=== PATIENT | female | born 1975 | race Caucasian/White ===

== ENCOUNTER 2017-12-16 11:29 | Emergency (ER) | payer MEDICAID ==
[~2017-12-16] VITALS: Ht 167.6 cm; Wt 63.5 kg
[2017-12-16] MEDS ORDERED: HYDROmorphone 1 mg/ml syringe IV ONE (11:55)
[2017-12-16] MEDS ORDERED: ondansetron/PF 4mg/2ml inj IV ONE ×2 (11:55→14:15)
[2017-12-16] MEDS ORDERED: normal saline 1000ML IV soln IVB ONE (11:55)
[2017-12-16 12:06] LABS: CLARITY,URINE Clear (Clear); COLOR,URINE Yellow (Yellow); GLUCOSE, URINE Negative (Neg); KETONES,URINE Negative (Neg); LEUKOCYTE ESTERASE ,URINE Trace (Neg); NITRITES, URINE Negative (Neg); OCCULT BLOOD,URINE Small (Neg); PROTEIN,URINE Negative (Neg); URINE HCG NEGATIVE (NEG)
[2017-12-16] MEDS ORDERED: HYDROmorphone inj. 0.5 MG/0.5 ML DISP.SYRIN ONE (12:06)
[2017-12-16 12:17] LABS: UA COLLECTION TYPE CLN CATCH MIDSTREAM
[2017-12-16 12:18] LABS: BACTERIA,URINE FEW /HPF (Neg); RBC,URINE 0-2 /HPF (0-2); WBC,URINE 0-4 /HPF (0-4)
[2017-12-16 12:19] LABS: BASOPHILS % (AUTO) 0.1 % (0-1); EOSINOPHILS % (AUTO) 0.4 % (0-6); HEMATOCRIT 34.5 % (35.0-45.0); HEMOGLOBIN 12.1 g/dl (12.0-16.0); LYMPHOCYTES % (AUTO) 19.1 % (21-51); MEAN CORPUSCULAR HGB CONC 35.1 % (33.0-36.5); MEAN CORPUSCULAR VOLUME 99.7 FL (78-98); MEAN PLATELET VOLUME 7.7 FL (7.4-10.4); MONOCYTES # (AUTO) 0.4 X10'3 (0-0.9); NEUTROPHILS # (AUTO) 7.9 X10'3 (1.8-7.7); NEUTROPHILS % (AUTO) 76.4 % (42-75); PLATELET COUNT 154 X10'3 (140-440); RED BLOOD COUNT 3.46 X10'6 (4.20-5.60); RED CELL DISTRIBUTION WIDTH 13.9 % (11.5-14.5); WHITE BLOOD COUNT 10.4 X10'3 (4.5-11.0)
[2017-12-16 12:19] LABS: MUCUS STRANDS FEW /LPF (Neg); SQUAMOUS EPITHELIAL CELL,UR MODERATE /LPF (FEW)
[2017-12-16 12:29] LABS: PARTIAL THROMBOPLASTIN TIME 34 SECONDS (22-32); PROTHROMBIN TIME 10.7 SECONDS (9.0-12.0)
[2017-12-16 12:33] LABS: URINE AMPHETAMINE SCREEN NEGATIVE (Neg); URINE BARBITUATE SCREEN NEGATIVE (Neg); URINE BENZODIAZEPINES SCREEN POSITIVE (Neg); URINE CANNABINOID SCREEN NEGATIVE (Neg); URINE COCAINE SCREEN NEGATIVE (Neg); URINE METHADONE SCREEN NEGATIVE (Neg); URINE OPIATE SCREEN POSITIVE (Neg); URINE PHENCYCLIDINE SCREEN NEGATIVE (Neg)
[2017-12-16] MEDS ORDERED: HYDROmorphone 2mg/ml vial IV ONE ×2 (12:50→14:00)
[2017-12-16 13:29] LABS: ALBUMIN 2.9 G/DL (3.4-5.0); ALBUMIN/GLOBULIN RATIO 0.8 (1.1-1.5); ANION GAP 7 (8-16); ASPARTATE AMINO TRANSFERASE 23 U/L (10-37); BILIRUBIN,TOTAL 0.3 MG/DL (0.1-1.0); BLOOD UREA NITROGEN 8 MG/DL (7-18); BUN/CREATININE RATIO 8.9 (6.6-38.0); CALCIUM 8.2 MG/DL (8.5-10.1); CHLORIDE 109 MMOL/L (99-107); GLUCOSE 86 MG/DL (70-104); POTASSIUM 3.8 MMOL/L (3.5-5.1); SODIUM 142 MMOL/L (135-145); TOTAL CARBON DIOXIDE 25.9 MMOL/L (24-32); TOTAL PROTEIN 6.5 G/DL (6.4-8.2); eGFR 69 ML/MIN
[2017-12-16 13:30] LABS: ALANINE AMINOTRANSFERASE 29 U/L (12-78); ALKALINE PHOSPHATASE 58 IU/L (46-116); AMYLASE 22 U/L (25-115)
[2017-12-16] MEDS ORDERED: DOXY100C43 PO (14:14)
[2017-12-16] MEDS ORDERED: HYDR-569 PO (14:14)
[2017-12-16] MEDS ORDERED: NITR100C6 PO (14:14)
[2017-12-16 14:30] VITALS: BP 121/89
== END 2017-12-16 14:32 | disposition home or self-care (01) ==
LOC: ER 11:29
DX: N39.0 Urinary tract infection, site not specified (principal); F41.9 Anxiety disorder, unspecified; Z88.1 Allergy status to other antibiotic agents
CPT/HCPCS: 36415; 74176; 80053; 80305; 81001; 81025; 82150; 85025; 85610; 85730; 87088; 96361; 96374; 96375; 96376; 99285; J1170; J2405; J7030

== ENCOUNTER 2018-09-16 18:43 | Emergency (ER) | payer MEDICAID ==
[~2018-09-16] VITALS: Ht 167.6 cm; Wt 62.3 kg
[~2018-09-16 18:43] MED LIST: HYDR-4383 PO; NITR100C6 PO
[2018-09-16] MEDS ORDERED: LORazepam 1 MG tablet PO ONE ×2 (19:15→19:45)
[2018-09-16] MEDS ORDERED: LORA1TAB PO (20:19)
[2018-09-16 20:22] VITALS: BP 120/72
== END 2018-09-16 20:25 | disposition home or self-care (01) ==
LOC: ER 18:43
DX: F41.9 Anxiety disorder, unspecified (principal); R00.0 Tachycardia, unspecified; Z88.1 Allergy status to other antibiotic agents
CPT/HCPCS: 99284